=== PATIENT | female | born 1955 | race Caucasian/White ===

== ENCOUNTER → 2024-08-04 08:15 | Outpatient (REF) | payer MEDICARE, SELFPAY | LOC: RAD 08:15 | PROVIDERS: ATTENDING PHYSICIAN Nurse Practitioner Family | DX: Z78.0 Asymptomatic menopausal state (principal) | CPT/HCPCS: 77080 ==

== ENCOUNTER 2024-10-10 06:22 | Day surgery (SDC) | payer MEDICARE, SELFPAY | END 2024-10-10 13:10 | disposition home or self-care (01) | LOC: GI 06:22 | PROVIDERS: ATTENDING PHYSICIAN Internal Medicine Gastroenterology; FAMILY PHYSICIAN Nurse Practitioner Family | DX: Z12.11 Encounter for screening for malignant neoplasm of colon (principal); D12.0 Benign neoplasm of cecum; D12.3 Benign neoplasm of transverse colon; K63.5 Polyp of colon; K64.0 First degree hemorrhoids | CPT/HCPCS: 45385; 45380; 88305 ==